=== PATIENT | male | born 1960 | race Caucasian/White ===

== ENCOUNTER 2019-02-08 00:21 | Outpatient (CLI) | payer MEDICAID, SELFPAY ==
[2019-02-08 10:18] LABS: Anion Gap 10.1 mmol/L (3-11); BUN 18 mg/dL (7-18); CO2 25.9 mmol/L (21.0-32.0); CREATININE 0.84 mg/dL (0.70-1.30); Chloride 106 mmol/L (98-107); Cholesterol 184 mg/dL (50-200); Glucose 105 mg/dL (70-100); HDL Cholesterol 52 mg/dL (40-60); LDL CHOLESTEROL 114 mg/dL (<100); Potassium 4.2 mmol/L (3.5-5.1); Sodium 142 mmol/L (136-145); Triglyceride 69 mg/dL (30-150)
== END 2019-02-08 00:41 ==
PROVIDERS: PCP Family Medicine; Visit Provider Family Medicine
DX: E78.5 Hyperlipidemia, unspecified (principal)
CPT/HCPCS: 36415; 80048; 80061; 83721

== ENCOUNTER 2019-02-23 15:29 | Emergency (ER) | payer MEDICAID, SELFPAY ==
[2019-02-23 15:30] VITALS: BP 162/95; PULSE 81; RESP 18; TEMP 36.6; O2SAT 96
--- NOTE | 2019-02-23 15:46 | ED.GENADUL_ITS ---
Discharge Plan Disposition Patient Disposition: HOME Condition: Stable Discharge Details Chief Complaint: FacialProb Clinical Impression: Laceration of nose Primary Care Provider: Daysi Carlos ED Provider: Thomas Espana Home Meds and New Rx's Prescriptions: No Action ascorbic acid (vitamin C) [Vitamin C] 500 MG tablet,chewable 500 mg PO DAILY RF: 0 multivitamin [Men's Multi-Vitamin] 1 EACH tablet 1 ea PO DAILY RF: 0 Discharge Instructions Instructions: Facial Laceration (ED) Additional Instructions: return in 10 days for wound evaluation for suture removal. If signs of infection such as yellow/white discharge from the woud or spreading redness on the skin develop return sooner also return sooner if you have persistent vomit, severe worsening of pain or new pain such as chest pain if you notice fatigue and issues with memory this could signal a concussion. Follow up with your primary care provider if this develops Medical Decision Making 58 yo male with hx of HLD, not on blood thinners, comes in with chief complaint of facial trauma. He was unloading hay when the wind increased hitting the patient in the face with a heavy wooden door. Did not have fall more than standing, no loc and no vomit since this happened. He has a 1cm laceration over the mid nasal bridge and epistaxis from the right nare. EOMI, PERRL, no pain on eom and no complains of vision changes. no severe headaches, no neck pain even on rom. Meets criteria per [place] head ct rules and nexus to not image his head. Has no septial hematoma on exam. Will have nursing clean up the dry blood and hold nasal pressure and close the wound. pt remains sstable, lac actually 2cm in length after cleaning and closed with 5 5-0 sutures without incident. He will return in 10 days to have sutures removed, sooner if signs of infection develop Differential Diagnosis nasal trauma, laceration HPI General Mode of arrival: ambulatory . Date/Time Provider Initiated Documentation: 02/23/19 15:30 . Limitations to Documentation: no limitations . Information obtained by: patient . History of Present Illness 58 year old M presents to the emergency department with the chief complaint of facial trauma, described as moderate, Quality is described as aching, and is localized to the face. Patient reports no radiation. Patient started experiencing this minute(s) (30) and it has been constant. No relieving factors improve symptom(s), No exacerbating factors reported . Patient did receive the following treatments prior to arrival, none Related Data Home Medications Medication Instructions Recorded Confirmed ascorbic acid (vitamin C) [Vitamin 500 mg PO DAILY tab.chew 11/20/12 02/23/19 C] multivitamin [Men's Multi-Vitamin] 1 ea PO DAILY 12/01/15 02/23/19 Allergies Allergy/AdvReac Type Severity Reaction Status Date / Time No Known Allergies Allergy Unverified 02/23/19 15:34 General Stated Complaint: FacialProb REMY: 3 Review of Systems Review of Systems All systems reviewed & are unremarkable except as noted in HPI and below Constitutional Denies weakness Cardiovascular Denies dyspnea Respiratory Denies dyspnea Gastrointestinal Denies vomiting Neurologic Denies weakness PFSH Surgical History Appendectomy Vasectomy Family History Mother Hyperlipidemia Father Essential hypertension Heart disease Hyperlipidemia Sister No problems noted. Brother No problems noted. Maternal Grandfather No problems noted. Paternal Grandfather Colon cancer Maternal Grandmother Diabetes Stroke Paternal Grandmother Stroke Sister No problems noted. Sister No problems noted. Brother No problems noted. Son No problems noted. Daughter No problems noted. Daughter No problems noted. Sister No problems noted. Brother No problems noted. Social History Smoking/Tobacco Use Status: Never Alcohol Intake: never Drug use: Never Substance use type: does not use Caregiver/Support person: No Household members: spouse Housing: house Communication Needs: None Pets and animals: No Sexually active: Yes Current gender identity: decline to answer What is your relationship status?: How often do you talk on the phone with friends or family?: decline to answer How often do you get together with friends or relatives?: decline to answer How often do you attend latter-day or scientologist services?: decline to answer Do you belong to any clubs or organized social groups?: decline to answer Panel score (0-1 are the most socially isolated patients): 1 What type of physical activity do you participate in: none Martha/Yarsani: Orthodoxy Special martha needs: No Seatbelt use: always Drive intox or ride w/intox courier delivery driver: No Do you feel safe at home: Yes Do you feel safe in your relationship?: Yes Exam Const General: no acute distress Orientation: alert HENMT Head: no palpable skull fracture Ears: external ears normal General nose exam: external nose normal Mouth: moist mucous membranes Eyes General: appearance normal, both eyes and all related structures Neck Neck: normal visual inspection Resp Effort & Inspection: normal respiratory effort and able to speak in complete sentences Cardio Rate: regular rate Skin General skin exam: no rashes or lesions noted Neuro General: alert and oriented x3 Extrem General: normal to inspection Psych Mental Status: mental status grossly normal Course Vital Signs Temperature 36.6 C 02/23/19 15:30 Pulse 81 02/23/19 15:30 Respiratory Rate 18 02/23/19 15:30 Blood Pressure 162/95 H 02/23/19 15:30 Pulse Oximetry 96 02/23/19 15:30 Temperature 36.6 C 02/23/19 15:30 Temperature Source Skin 02/23/19 15:30 Pulse 81 02/23/19 15:30 Respiratory Rate 18 02/23/19 15:30 Blood Pressure 162/95 H 02/23/19 15:30 Pulse Oximetry 96 02/23/19 15:30 Oxygen Delivery Method Room Air 02/23/19 15:30 Oxygen Flow Rate 0 02/23/19 15:30 Pain Level 10 02/23/19 15:30 Procedures Laceration Laceration 1: Site: face Size (cm): 2 Description: stellate Depth: simple, single layer Local Anesthetic: Lidocaine 1% and with Epi Amount of anesthesia used (mL): 4 Pre-repair: wound explored and irrigated extensively Skin layer closed with: nylon Size (cm): 5-0 Number of sutures: 5 Technique: simple, interrupted
[2019-02-23] MEDS: Ketorolac 30 MG/ML VIAL IM (15:55)
[2019-02-23 17:13] VITALS: BP 173/83; PULSE 79; RESP 16
[2019-02-23 17:24] VITALS: BP 160/90; PULSE 78; RESP 16
--- NOTE | 2019-02-23 17:26 | NUR.NOTE ---
Nursing Note: pt alert/oriented/ambulatory with steady gait, discharged to home. Instructions reviewed, understanding verbalized. VSS
== END 2019-02-23 17:26 | disposition home or self-care (01) ==
LOC: ER 17:19
PROVIDERS: Emergency Provider Emergency Medicine; PCP Family Medicine
DX: S01.21XA Laceration without foreign body of nose, initial encounter (principal); W22.8XXA Striking against or struck by other objects, initial encounter
CPT/HCPCS: 12011; 96372; J1885

== ENCOUNTER 2019-03-05 13:38 | Emergency (ER) | payer MEDICAID, SELFPAY ==
[2019-03-05 13:41] VITALS: BP 153/80; PULSE 54; RESP 15; TEMP 36.7; O2SAT 98
--- NOTE | 2019-03-05 13:54 | W.ED.GENAD ---
Discharge Plan Disposition Patient Disposition: HOME Condition: Stable Discharge Details Chief Complaint: SutureRem Clinical Impression: Encounter for removal of sutures Primary Care Provider: Daysi Carlos ED Provider: Oswald Quezada Home Meds and New Rx's Prescriptions: Continued ascorbic acid (vitamin C) [Vitamin C] 500 MG tablet,chewable 500 mg PO DAILY RF: 0 multivitamin [Men's Multi-Vitamin] 1 EACH tablet 1 ea PO DAILY RF: 0 Discharge Instructions Additional Instructions: Return for any acute concerns. Resume normal routine, activities, medication Medical Decision Making This 58-year-old male who was struck by a barn door with laceration to the bridge of his nose 9 days ago. Is now here for suture removal. He does note some mild diminishment of sensation but is intact throughout his face. Discussed that he may have some mild neuropraxia due to the injury. Sutures removed without difficulty. He stable for discharge to home HPI General Mode of arrival: ambulatory. Date/Time Provider Initiated Documentation: 03/05/19 13:54. Limitations to Documentation: no limitations. Information obtained by: patient. History of Present Illness 58 year old M presents to the emergency department with the chief complaint of Here for suture removal from nose. No other complaints., and is localized to the face. Patient notes no other symptoms.. Related Data Home Medications Medication Instructions Recorded Confirmed ascorbic acid (vitamin C) [Vitamin 500 mg PO DAILY tab.chew 11/20/12 03/05/19 C] multivitamin [Men's Multi-Vitamin] 1 ea PO DAILY 12/01/15 03/05/19 Allergies Allergy/AdvReac Type Severity Reaction Status Date / Time No Known Allergies Allergy Unverified 03/05/19 13:45 General Stated Complaint: SutureRem REMY: 5 PFSH Surgical History Appendectomy Vasectomy Family History Mother Hyperlipidemia Father Essential hypertension Heart disease Hyperlipidemia Sister No problems noted. Brother No problems noted. Maternal Grandfather No problems noted. Paternal Grandfather Colon cancer Maternal Grandmother Diabetes Stroke Paternal Grandmother Stroke Sister No problems noted. Sister No problems noted. Brother No problems noted. Son No problems noted. Daughter No problems noted. Daughter No problems noted. Sister No problems noted. Brother No problems noted. Social History Smoking/Tobacco Use Status: Never Alcohol Intake: never Drug use: Never Substance use type: does not use Caregiver/Support person: No Household members: spouse Housing: house Communication Needs: None Pets and animals: No Sexually active: Yes Current gender identity: decline to answer What is your relationship status?: How often do you talk on the phone with friends or family?: decline to answer How often do you get together with friends or relatives?: decline to answer How often do you attend mormon or cheondoism services?: decline to answer Do you belong to any clubs or organized social groups?: decline to answer Panel score (0-1 are the most socially isolated patients): 1 What type of physical activity do you participate in: none Martha/Orthodoxy: Jehovah'S Witness Special martha needs: No Seatbelt use: always Drive intox or ride w/intox assembly line driver: No Do you feel safe at home: Yes Do you feel safe in your relationship?: Yes Exam Narrative Exam Narrative: GEN: awake, alert, oriented 3. Pleasant, well groomed, interactive. HEAD: Normocephalic, atraumatic ENT: Healing laceration to the bridge of the nose with [address] No midface instability. Sensation is intact but diminished per the patient. States it is improving. mucous membranes moist, oropharynx unremarkable, External ear exam unremarkable Neuro: Grossly normal neurologic exam, conversant, interactive. Psych: Speech fluent, thoughts congruent, affect normal Course Vital Signs Temperature 36.7 C 03/05/19 13:41 Pulse 54 L 03/05/19 13:41 Respiratory Rate 15 03/05/19 13:41 Blood Pressure 153/80 H 03/05/19 13:41 Pulse Oximetry 98 03/05/19 13:41 Temperature 36.7 C 03/05/19 13:41 Temperature Source Temporal Artery Scan 03/05/19 13:41 Pulse 54 L 03/05/19 13:41 Respiratory Rate 15 03/05/19 13:41 Respiratory Effort Non-Labored 03/05/19 13:44 Blood Pressure 153/80 H 03/05/19 13:41 Blood Pressure Position Sitting 03/05/19 13:41 Pulse Oximetry 98 03/05/19 13:41 Oxygen Delivery Method Room Air 03/05/19 13:41 Oxygen Flow Rate 0 03/05/19 13:41
== END 2019-03-05 14:00 | disposition home or self-care (01) ==
PROVIDERS: Emergency Provider Emergency Medicine; PCP Family Medicine
DX: Z48.02 Encounter for removal of sutures (principal); S01.21XD Laceration without foreign body of nose, subsequent encounter; X58.XXXD Exposure to other specified factors, subsequent encounter

== ENCOUNTER 2021-01-20 00:42 | Outpatient (CLI) | payer MEDICAID, SELFPAY ==
[2021-01-20 13:16] LABS: Calculated LDL 168 mg/dL (<100); Cholesterol 232 mg/dL (<200); Glucose 114 mg/dL (74-106); HDL Cholesterol 48 mg/dL (40-60); Triglyceride 80 mg/dL (<150)
== END 2021-01-20 00:43 | disposition home or self-care (01) ==
LOC: LOS 00:43
PROVIDERS: PCP Family Medicine; Visit Provider Nurse Practitioner Family
DX: Z13.1 Encounter for screening for diabetes mellitus (principal); Z86.39 Personal history of other endocrine, nutritional and metabolic disease
CPT/HCPCS: 36415; 80061; 82947

== ENCOUNTER 2022-07-09 18:45 | Emergency (ER) | payer MEDICAID, SELFPAY ==
[2022-07-09 18:51] VITALS: BP 160/83; PULSE 63; RESP 18; TEMP 36.8; O2SAT 99
--- NOTE | 2022-07-09 19:15 | DI.CT_ITS ---
Exam(s) CT RENAL COLIC WO EXAM: CT RENAL COLIC WO CLINICAL HISTORY: Right Flank Pain. TECHNIQUE: Imaging Protocol: Axial computed tomography images with coronal and sagittal reformatted images were created and reviewed CONTRAST MATERIAL: Intravenous: none Oral: None COMPARISON: No exams were available for comparison FINDINGS: VISUALIZED LUNG BASES: No nodules nor pleural effusions evident. ABDOMEN: There is no ascites. LIVER: There are no obvious focal hepatic lesions evident of this noninfused study. GALLBLADDER/BILIARY: No obvious gallbladder pathology. CBD is not dilated. PANCREAS: No evidence of pancreatic mass nor dilatation of the pancreatic duct. SPLEEN: Spleen is not enlarged. However, there is a subtle subcapsular hypodensity in the inferior a spect spleen. Probable hemangioma. No other focal splenic findings evident. ADRENALS: There are no significant adrenal masses. KIDNEYS:No cysts evident. No solid renal masses. No calculi nor hydronephrosis. . ABDOMINAL AORTA: Abdominal aorta is not enlarged. LYMPH NODES: There is no retroperitoneal nor paraaortic adenopathy. ABDOMINAL WALL: No evidence of significant anterior abdominal wall nor inguinal hernia. GI: There is no evidence of bowel obstruction, free air, nor abscess. PELVIS: LYMPH NODES: There is no intrapelvic nor inguinal adenopathy. GI: No evidence of appendicitis.No evidence of sigmoid diverticulitis. URINARY BLADDER: There is a small 3 millimeter calculus in the dependent aspect of the urinary bladde r. REPRODUCTIVE: Prostate size normal. Seminal vesicles unremarkable. OSSEOUS: No significant osseous lesions. IMPRESSION: 1. The main finding here is a small 2-3 millimeter solitary calculus in the dependent aspect urinary bladder, most probably recently passed down the right ureter a given the history of recent right flan k pain. There are no remaining calculi in the kidneys on either side. 2. No other significant findings. RADIATION DOSE DELIVERED: 995.68mGy.cm Total DLP DATA REPOSITORY: All CT scans at this facility are submitted to the National Radiology Data Registry (NRDR) Dose Index Registry (DIR) with the [employer] (ACR). RADIATION OPTIMIZATION: All CT scans at this facility use at least one of these dose optimization te chniques: automated exposure control; mA and/or kV adjustment per patient size (includes targeted exa ms where dose is matched to clinical indication); or iterative reconstruction.
--- NOTE | 2022-07-09 19:26 | W.ED.GENAD ---
Discharge Plan Disposition Patient Disposition: HOME Condition: Stable Discharge Details Clinical Impression: Kidney stone on right side Primary Care Provider: Johnie Adams ED Provider: Belgica Leigh Home Meds and New Rx's Prescriptions: No Action ibuprofen 200 mg tablet 200 mg PO Q6H PRN simvastatin 20 mg tablet 20 mg PO DAILY Qty: 90 3RF ascorbic acid (vitamin C) [Vitamin C] 500 MG tablet,chewable 500 mg PO DAILY Rx Instructions: winter only multivitamin [Men's Multi-Vitamin] 1 EACH tablet 1 ea PO DAILY Discharge Instructions Instructions: Kidney Stones (ED) Additional Instructions: CT shows a 2 mm kidney stone noted in her bladder. It is likely that you recently passed this which is the pain that you felt. You may have some more pain when you expel the stone. Please strain all your urine. If you catch the stone you may keep it and follow-up with urology. Please take Tylenol or Ibuprofen with food every 4-6 hours as needed for pain and swelling. Please take the nausea medication as directed as needed for nausea. Follow up with urology/primary care provider in 3-5 days. Return to ED sooner if any worsening or concerns. Increase oral fluids. Referrals: Johnie Adams, CERTIFIED ORTHOTIST/PEDORTHIST [Primary Care Provider] - 2 weeks Nataly Hou DNP [NURSE PRACTITIONER] - 1 week Medical Decision Making 62-year-old male presents to the ER with a chief complaint of right flank pain which began around 4 PM associated with nausea which since has resolved upon arrival to the ER. Urinalysis and CT abdomen pelvis without contrast ordered to rule out kidney stone. Patient is pain-free at this time. See CT results below. There is a 2 mm kidney stone noted in the bladder which patient most likely recently passed which is consistent with his clinical presentation. We will plan to discharge patient home with strainer and home care and follow-up care if needed. This text was generated using [employer] system, please disregard any oddities of phrase or misspellings. Imaging Data Radiologic Study: Imaging: CT Scan Radiologist's impression: IMPRESSION: No obstructing ureteral calculi. 2 mm bladder stone, probably recently passed from the right upper urinary tract given the provided history of recent right flank pain and the presence of right-sided periureteral edema. Clinical correlation is recommended. Thank you for allowing us to participate in the care of your patient. Dictated and Authenticated by: Elie Camilo MD [facility] General Mode of arrival: ambulatory. Date/Time Provider Initiated Documentation: 07/09/22 19:04. Limitations to Documentation: no limitations. Information obtained by: patient, RN notes reviewed and old records reviewed. HPI Narrative: 62-year-old male presents to the ER with a chief complaint of right flank pain which began around 4 PM associated with nausea which since has resolved upon arrival to the ER. He reports no abdominal pain no diarrhea no fever chills or shortness of breath denies any chest pain. No significant past medical history. Does have a history of appendicitis and appendectomy years ago. He did take 800 mg of ibuprofen prior to arrival. Related Data Home Medications Medication Instructions Recorded Confirmed ascorbic acid (vitamin C) 500 mg 500 mg PO DAILY 11/20/12 07/09/22 chewable tablet (Vitamin C) multivitamin (Men's Multi-Vitamin 1 ea PO DAILY 12/01/15 07/09/22 tablet) ibuprofen 200 mg tablet 200 mg PO Q6H PRN 10/19/21 07/09/22 simvastatin 20 mg tablet 20 mg PO DAILY #90 tabs 01/29/22 07/09/22 Previous Rx's Medication Instructions Recorded simvastatin 20 mg tablet 20 mg PO DAILY #90 tabs 01/29/22 Allergies Allergy/AdvReac Type Severity Reaction Status Date / Time No Known Allergies Allergy Verified 07/09/22 18:53 General Stated Complaint: FlankPain REMY: 3 Review of Systems All systems reviewed & are unremarkable except as noted in HPI and below Genitourinary Genitourinary: Reports flank pain PFSH All Active Problems (Updated 07/09/22 @ 20:21 by Belgica Leigh NP) Kidney stone on right side (Acute) Healthcare maintenance (Acute) Patient declines colonoscopy as of 01/2022 Hyperglycemia (Acute) Essential hypertension (Acute) Actinic keratosis (Acute 02/01/14) Hearing loss (Acute) Heart murmur (Acute 08/15/01) 2012-normal echo, consistent with innocent murmur Hyperlipidemia, unspecified (Acute) Sensorineural hearing loss, bilateral (Acute 02/01/14) Surgical History Appendectomy History of appendectomy Status post vasectomy Vasectomy Family History Mother Hyperlipidemia Father Essential hypertension Heart disease Hyperlipidemia Sister No problems noted. Brother No problems noted. Maternal Grandfather No problems noted. Paternal Grandfather Colon cancer Maternal Grandmother Diabetes Stroke Paternal Grandmother Stroke Sister No problems noted. Sister No problems noted. Brother No problems noted. Son No problems noted. Daughter No problems noted. Daughter No problems noted. Sister No problems noted. Brother No problems noted. Social History Smoking/Tobacco Use Status: Never Second Hand Exposure: No Smoking risk assessment performed?: Yes Alcohol Intake: never Drug use: Never Substance use type: does not use Counseling given: No Caregiver/Support person: No Household members: spouse Housing: house Communication Needs: None Do you need help understanding health information?: Rarely Pets and animals: No Sexually active: No Do you think of yourself as: straight/heterosexual Current gender identity: male What is your relationship status?: How often do you talk on the phone with friends or family?: three or more times per week How often do you get together with friends or relatives?: three or more times per week How often do you attend worship or evangelical services?: decline to answer Do you belong to any clubs or organized social groups?: no Panel score (0-1 are the most socially isolated patients): 2 What type of physical activity do you participate in: none Martha/Anabaptism: Restoration Special martha needs: No Seatbelt use: always Drive intox or ride w/intox waste collection driver: No Do you feel safe at home: Yes Do you feel safe in your relationship?: Yes Exam Narrative Exam Narrative: Constitutional: Alert and oriented x3. Appears stated age. Normal body habitus. Head: Normocephalic, no trauma. Eyes: Pupils PERRL, Red reflex noted, EOM's intact. Eyelids symmetrical without lesions, discharge, or swelling. ENT: Bilateral TM's WNL, External ear normal to inspection, no mastoid TTP, swelling, or erythema, Nasal turbinates WNL, no nasal discharge. Normal dentition, Posterior pharynx WNL, no exudate. Chest: RRR, Normal S1, S2, distal pulses intact. Resp: Lungs clear to auscultation bilaterally, no wheezes, rales, or rhonchi. Abdomen: Soft, non-distended, Normoactive bowel sounds all 4 quads. Musculoskeletal: Normal gait, 5/5 strength to all four extremities. Skin: No suspicious rashes or lesions. Capillary refill less than 2 sec. Hematologic/Lymphatic: No ecchymosis, no lymphadenopathy. Course Vital Signs Vital signs: Vital Signs Temperature 36.8 C 07/09/22 18:51 Pulse 63 07/09/22 18:51 Respiratory Rate 18 07/09/22 18:51 Blood Pressure 160/83 H 07/09/22 18:51 Pulse Oximetry 99 07/09/22 18:51 Temperature 36.8 C 07/09/22 18:51 Temperature Source Tympanic 07/09/22 18:51 Pulse 63 07/09/22 18:51 Respiratory Rate 18 07/09/22 18:51 Respiratory Effort Non-Labored 07/09/22 18:53 Blood Pressure 160/83 H 07/09/22 18:51 Blood Pressure Position Sitting 07/09/22 18:51 Pulse Oximetry 99 07/09/22 18:51 Oxygen Delivery Method Room Air 07/09/22 18:51 Oxygen Flow Rate 0 07/09/22 18:51 Pain Level 0 07/09/22 18:53
--- NOTE | 2022-07-09 20:13 | DI.VRAD_ITS ---
PROCEDURE INFORMATION: Exam: CT Abdomen And Pelvis Without Contrast Exam date and time: 07/09/2022 7:55 PM Age: 62 years old Clinical indication: Abdominal pain; Flank; Right; Prior surgery; Surgery date: 6+ months; Surgery type: Appy; Additional info: Right flank pain TECHNIQUE: Imaging protocol: Computed tomography of the abdomen and pelvis without contrast. Radiation optimization: All CT scans at this facility use at least one of these dose optimization techniques: automated exposure control; mA and/or kV adjustment per patient size (includes targeted exams where dose is matched to clinical indication); or iterative reconstruction. COMPARISON: No relevant prior studies available. FINDINGS: Lungs: Lung bases clear. Liver: Grossly unremarkable unenhanced liver. Gallbladder and bile ducts: Gallbladder partially collapsed. No calcified gallstones seen. No biliary dilatation. Pancreas: Grossly unremarkable unenhanced pancreas. Spleen: Indeterminate hypoattenuating splenic lesion, incompletely characterized but most likely a small cyst or hemangioma. Adrenal glands: Normal appearing adrenal glands. Kidneys and ureters: 11 mm right renal cyst. No radiopaque renal calculi or hydronephrosis. No gross ureterectasis. Mild periureteral edema on the right. No distally obstructing ureteral stones. Stomach and bowel: No oral contrast. Stomach partially decompressed. No small bowel dilatation to suggest obstruction. Normal-appearing colon. No evidence of diverticulitis or colitis. Appendix: Appendix not identified, obscured if present. Correlation with surgical history recommended. Intraperitoneal space: No gross ascites or free air. Vasculature: Normal caliber abdominal aorta. Lymph nodes: No pathologically enlarged mesenteric, retroperitoneal, or pelvic sidewall lymph nodes. Urinary bladder: 2 mm calculus in the posterior midline of the urinary bladder, image 129 of series 2. Urinary bladder partially distended. Reproductive: Normal-appearing prostate gland and seminal vesicles. Bones/joints: No acute fracture seen among the bones of the abdomen or pelvis. Spinal degenerative change with endplate irregularities and anterior osteophytes at several lower thoracic levels. Soft tissues: No significant ventral or inguinal hernia. IMPRESSION: No obstructing ureteral calculi. 2 mm bladder stone, probably recently passed from the right upper urinary tract given the provided history of recent right flank pain and the presence of right-sided periureteral edema. Clinical correlation is recommended. Dictated and Authenticated by: Elie Camilo MD. Ordering:CAMPBELL Lindo MD
[2022-07-09] MEDS: Ondansetron O.D.T. 4 MG TABEF, 3 TABS/BTL PO (20:35)
== END 2022-07-09 20:37 | disposition home or self-care (01) ==
PROVIDERS: Emergency Provider Registered Nurse Emergency; PCP Nurse Practitioner Family
DX: N20.0 Calculus of kidney (principal)
CPT/HCPCS: 99284; 74176; 99283

== ENCOUNTER 2022-07-27 17:41 | Outpatient (REF) | payer MEDICAID, SELFPAY ==
[2022-08-02 00:17] LABS: Source: Passed Stone
== END 2022-07-27 17:42 | disposition home or self-care (01) ==
LOC: LBN 17:41
PROVIDERS: PCP Nurse Practitioner Family; Visit Provider Urology
DX: N20.0 Calculus of kidney (principal)
CPT/HCPCS: 82365

== ENCOUNTER 2022-08-20 04:18 | Outpatient (CLI) | payer MEDICAID, SELFPAY ==
[2022-08-20 12:51] LABS: ALT 28 U/L (16-63); Anion Gap 10.5 mmol/L (3-11); BUN 19 mg/dL (7-18); CO2 25.5 mmol/L (21.0-32.0); CREATININE 0.8 mg/dL (0.70-1.30); Calculated LDL 130 mg/dL (<100); Chloride 103 mmol/L (98-107); Cholesterol 197 mg/dL (<200); Estimated GFR 100.69 (mL/min/1.73m2); Glucose 114 mg/dL (74-106); HDL Cholesterol 54 mg/dL (40-60); Sodium 139 mmol/L (136-145); Triglyceride 69 mg/dL (<150)
[2022-08-20 23:09] LABS: PSA, Screening 1.4 ng/mL (<=4.5)
[2022-08-21 09:31] LABS: Hepatitis C Ab w Rflx HCV PCR Negative (Negative)
[2022-08-21 10:33] LABS: HIV-1/2 Ag & Ab Screen Negative (Negative)
== END 2022-08-20 04:19 | disposition home or self-care (01) ==
LOC: LOS 04:18
PROVIDERS: PCP Nurse Practitioner Family; Visit Provider Family Medicine
DX: E78.2 Mixed hyperlipidemia (principal); I10 Essential (primary) hypertension; Z11.59 Encounter for screening for other viral diseases; Z12.5 Encounter for screening for malignant neoplasm of prostate
CPT/HCPCS: 36415; 80048; 80061; 84153; 86803; 87389; 83036; 84460

== ENCOUNTER 2024-03-16 04:03 | Outpatient (CLI) | payer MEDICAID, SELFPAY ==
[2024-03-16 12:33] LABS: Calculated LDL 120 mg/dL (<100); Cholesterol 193 mg/dL (<200); HDL Cholesterol 56 mg/dL (40-60); Potassium 3.9 mmol/L (3.5-5.1); Triglyceride 89 mg/dL (<150)
[2024-03-16 12:43] LABS: Hemoglobin A1C 6.4 % (<5.7)
== END 2024-03-16 04:04 | disposition home or self-care (01) ==
LOC: LOS 04:03
PROVIDERS: PCP Nurse Practitioner Family; Visit Provider Nurse Practitioner Family
DX: E78.2 Mixed hyperlipidemia (principal); I10 Essential (primary) hypertension; R73.9 Hyperglycemia, unspecified
CPT/HCPCS: 36415; 80061; 82565; 83036; 84132

== ENCOUNTER 2025-04-28 04:10 | Outpatient (CLI) | payer MEDICAID, SELFPAY ==
[2025-04-28 12:34] LABS: Anion Gap 11.4 mmol/L (3-11); BUN 21 mg/dL (7-18); CO2 24.6 mmol/L (21.0-32.0); Calcium 9.2 mg/dL (8.5-10.1); Calculated LDL 123 mg/dL (<100); Chloride 103 mmol/L (98-107); Cholesterol 188 mg/dL (<200); Estimated GFR 99.44 (mL/min/1.73m2); Glucose 120 mg/dL (74-106); HDL Cholesterol 49 mg/dL (>or=40); Potassium 4.0 mmol/L (3.5-5.1); Sodium 139 mmol/L (136-145); Triglyceride 83 mg/dL (<150)
[2025-04-28 12:36] LABS: Hemoglobin A1C 6.3 % (<5.7)
[2025-04-28 18:06] LABS: PSA, Screening 1.0 ng/mL (<=4.5)
== END 2025-04-28 04:11 | disposition home or self-care (01) ==
LOC: LOS 04:11
PROVIDERS: PCP Nurse Practitioner Family; Visit Provider Nurse Practitioner Family
DX: Z12.5 Encounter for screening for malignant neoplasm of prostate (principal); Z13.1 Encounter for screening for diabetes mellitus; Z13.220 Encounter for screening for lipoid disorders; I10 Essential (primary) hypertension
CPT/HCPCS: 36415; 80048; 80061; 84153; 83036